=== PATIENT | male | born 1995 | race African-American/Black ===

== ENCOUNTER 2019-06-06 15:02 | Emergency (ER) | payer MEDICAID ==
[~2019-06-06] VITALS: Ht 177.8 cm; Wt 73.0 kg
[2019-06-06 18:10] LABS: CLARITY URINE CLOUDY (CLEAR); COLOR URINE YELLOW (YELLOW); KETONES URINE NEGATIVE (NEGATIVE); LEUKOCYTE ESTERASE URINE TRACE (NEGATIVE); NITRITE URINE NEGATIVE (NEGATIVE); OCCULT BLOOD URINE NEGATIVE (NEGATIVE); PROTEIN URINE NEGATIVE (NEGATIVE); SPECIFIC GRAVITY URINE 1.024 (1.005-1.030)
[2019-06-06 18:44] VITALS: BP 119/82
[2019-06-09 05:15] LABS: NEISSERIA GONORRHOEAE NAA Negative (Negative)
== END 2019-06-06 18:45 | disposition home or self-care (01) ==
LOC: ER 15:02
DX: I86.1 Scrotal varices (principal)
CPT/HCPCS: 76870; 81003; 87491; 87591; 93976; 99284